=== PATIENT | male | born 1960 | race Caucasian/White ===

== ENCOUNTER 2020-04-24 12:11 | Inpatient (IN) ==
[2020-04-24] MEDS ORDERED: NS 0.9% 1000 ml BAG 1,000 ML IV ONE ×3 (12:25→13:46)
[2020-04-24] MEDS ORDERED: Lorazepam PYXIS KEY PRN ×2 (12:58→14:18)
[2020-04-24] MEDS ORDERED: LORazepam 2 mg VIAL 1 ml IV PUSH ONE ×2 (12:58→14:18)
[2020-04-24 13:21] LABS: Activated Partial Thrombo Time 24.9 seconds (26.0-38.0); Hematocrit 43 % (42-52); INR 1.44 (0.82-1.09); Mean Corpuscular HGB Conc 35 g/dL (31-36); Mean Corpuscular Hemoglobin 34 pg (27-31); Mean Corpuscular Volume 97 fL (80-94); Red Blood Count 4.36 10^6 /uL (4.18-5.48); Red Cell Distribution Width 13 % (10-15); White Blood Count 6.1 10^3/uL (3.5-10.8)
[2020-04-24 13:33] LABS: ALT 63 U/L (7-52); AST 53 U/L (13-39); Albumin 3.9 g/dL (3.2-5.2); Albumin/Globulin Ratio 1.2 (1-3); Alkaline Phosphatase 65 U/L (34-104); Anion Gap 11 mmol/L (2-11); BUN/Creatinine Ratio 15.7 (8-20); Blood Urea Nitrogen 14 mg/dL (6-24); CO2 Carbon Dioxide 27 mmol/L (22-32); Calcium 8.8 mg/dL (8.6-10.3); Chloride 94 mmol/L (101-111); Creatine Kinase 186 U/L (10-223); EGFR African American 105.1 (>60); EGFR Non-African American 86.9 (>60); Globulin 3.3 g/dL (2-4); Glucose 123 mg/dL (70-100); Magnesium 1.1 mg/dL (1.9-2.7); Potassium 3.3 mmol/L (3.5-5.0); Sodium 132 mmol/L (135-145); Total Protein 7.2 g/dL (6.4-8.9)
[2020-04-24 13:34] LABS: Troponin I 0.03 ng/mL (<0.03)
[2020-04-24 13:35] LABS: Alcohol, S < 10 mg/dL (<10)
[2020-04-24] MEDS ORDERED: Piperacillin/Tazobac ADVAN(*) 3.375 GM in NS 0.9% 100 ml BAG 100 ML IVPB ONE (13:37)
[2020-04-24] MEDS ORDERED: Magnesium Sulf 4 GM/100 ML IV 4,000 MG/100 ML BAG IVPB ONE ×2 (13:40)
[2020-04-24] MEDS ORDERED: Potassium Chlor 20 meq TAB.ER PO ONE (13:41)
[2020-04-24] MEDS ORDERED: Iohexol 300 (CONTRAST) 10 ML SDV IV ONE (13:43)
[2020-04-24 13:46] LABS: ABS Lymphocytes 0.2 10^3/ul (1.0-4.8); ABS Monocytes 0.2 10^3/ul (0-0.8); Lymphocyte % 2.8 %; Mean Platelet Volume 9.4 fL (7.4-10.4); Nucleated Red Blood Cells % 0.2; Platelet Count 66 10^3/uL (150-450)
[2020-04-24 13:50] LABS: TSH (Thyroid Stimulating Horm) 0.63 mcIU/mL (0.34-5.60)
[2020-04-24] MEDS: KCL 20 MEQ/100 ML IVPREMIX 20 MEQ/100 ML BAG IV SCH ×2 (13:59→17:21)
[2020-04-24] MEDS ORDERED: Thiamine 100 MG/ML 2 ml VIAL (200 mg) IM ONE (14:06)
[2020-04-24] MEDS ORDERED: Ondansetron 4 mg VIAL 2 MG/ML 2 ml VIAL IV PRN (15:46)
[2020-04-24] MEDS ORDERED: NS 0.9% 1000 ml BAG 1,000 ML IV SCH (16:00)
[2020-04-24 16:10] LABS: Urine Appearance Clear; Urine Bilirubin Negative (Negative); Urine Blood 1+ (Negative); Urine Color Yellow; Urine Glucose Negative (Negative); Urine Ketones Negative (Negative); Urine Nitrite Negative (Negative); Urine Protein Negative (Negative); Urine Urobilinogen Positive (Negative)
[2020-04-24 16:14] LABS: Urine Bacteria 1+ (Absent); Urine Red Blood Cell Trace(0-2/hpf) (Absent); Urine White Blood Cell 3+(>20/hpf) (Absent)
[2020-04-24 16:27] LABS: Troponin I 0.06 ng/mL (<0.03)
[2020-04-24 16:30] LABS: Urine Benzodiazepine Screen None Detected (None Detect); Urine Opiates Screen None Detected (None Detect)
[2020-04-24 16:36] LABS: Urine Specific Gravity > 1.030 (1.010-1.030)
[2020-04-24 16:53] LABS: Folate 13.88 ng/mL (>3.99)
[2020-04-24 17:02] LABS: ALT 51 U/L (7-52); AST 45 U/L (13-39); Albumin/Globulin Ratio 1.2 (1-3); Alkaline Phosphatase 66 U/L (34-104); BUN/Creatinine Ratio 13.8 (8-20); Blood Urea Nitrogen 13 mg/dL (6-24); CO2 Carbon Dioxide 24 mmol/L (22-32); Calcium 7.5 mg/dL (8.6-10.3); Chloride 103 mmol/L (101-111); EGFR African American 98.7 (>60); EGFR Non-African American 81.6 (>60); Globulin 2.6 g/dL (2-4); Glucose 129 mg/dL (70-100); Sodium 128 mmol/L (135-145); Total Protein 5.6 g/dL (6.4-8.9)
[2020-04-24] MEDS: Enoxaparin 40 MG/0.4 ML SYR(*) SUBCUT SCH (17:21)
[2020-04-24] MEDS: cefTRIAXone 1 gm/50 mL NS BAG 1 GM/50 ML BAG IVPB SCH (18:15)
[2020-04-24 19:02] LABS: Anion Gap 9 mmol/L (2-11); BUN/Creatinine Ratio 14.7 (8-20); Blood Urea Nitrogen 14 mg/dL (6-24); CO2 Carbon Dioxide 23 mmol/L (22-32); Calcium 8.1 mg/dL (8.6-10.3); Chloride 101 mmol/L (101-111); EGFR African American 97.5 (>60); EGFR Non-African American 80.6 (>60); Glucose 160 mg/dL (70-100); Magnesium 2.3 mg/dL (1.9-2.7); Sodium 133 mmol/L (135-145)
[2020-04-24 19:07] LABS: Troponin I 0.06 ng/mL (<0.03)
[2020-04-24 22:40] LABS: Troponin I 0.04 ng/mL (<0.03)
[2020-04-25] MEDS: LORazepam 1 mg TAB (*) PO SCH ×2 (04:04→06:15)
[2020-04-25] MEDS ORDERED: Lorazepam PYXIS KEY PRN ×3 (04:37→13:21)
[2020-04-25] MEDS ORDERED: LORazepam 2 mg VIAL 1 ml IV PUSH ONE ×2 (04:37→07:46)
[2020-04-25] MEDS ORDERED: LORazepam 2 mg VIAL 1 ml ONE (04:42)
[2020-04-25 05:27] LABS: ABS Lymphocytes 0.2 10^3/ul (1.0-4.8); ABS Monocytes 0.3 10^3/ul (0-0.8); Eosinophil % 0.3 %; Hematocrit 42 % (42-52); Hemoglobin 14.3 g/dL (14.0-18.0); Lymphocyte % 3.6 %; Mean Corpuscular HGB Conc 34 g/dL (31-36); Mean Corpuscular Hemoglobin 34 pg (27-31); Mean Corpuscular Volume 101 fL (80-94); Mean Platelet Volume 9.1 fL (7.4-10.4); Platelet Count 52 10^3/uL (150-450); Red Blood Count 4.18 10^6 /uL (4.18-5.48); Red Cell Distribution Width 14 % (10-15); White Blood Count 6.8 10^3/uL (3.5-10.8)
[2020-04-25] MEDS: Multivitamins/Minerals TAB PO SCH (07:39)
[2020-04-25] MEDS ORDERED: NS 0.9% 1000 ml BAG 1,000 ML IV ONE (08:46)
[2020-04-25] MEDS: Dexmedetomidine 1,000 MCG in NS 0.9% 250 ml 240 ML IV SCH (09:44)
[2020-04-25] MEDS ORDERED: Perflutren Lipid Microsphere 3 ML VIAL ONE (10:36)
[2020-04-25] MEDS ORDERED: Norepinephrine 16MCG/ML IVPRE 4,000 MCG/250 ML BAG IV ONE (11:20)
[2020-04-25] MEDS ORDERED: Norepinephrine 16MCG/ML IVPRE 4,000 MCG/250 ML BAG IV SCH (12:00)
[2020-04-25 13:50] LABS: BUN/Creatinine Ratio 21.6 (8-20); Calcium 8.1 mg/dL (8.6-10.3); EGFR African American 106.5 (>60); Potassium 3.8 mmol/L (3.5-5.0)
[2020-04-25] MEDS: cefTRIAXone 1 gm/50 mL NS BAG 1 GM/50 ML BAG IVPB SCH (18:07)
[2020-04-25] MEDS: Enoxaparin 40 MG/0.4 ML SYR(*) SUBCUT SCH (18:20)
[2020-04-25] MEDS: NS 0.9% 1000 ml BAG 1,000 ML IV SCH (19:50)
[2020-04-25] MEDS: LORazepam 2 mg VIAL 1 ml IV PUSH PRN (20:26)
[2020-04-26] MEDS: NS 0.9% 1000 ml BAG 1,000 ML IV SCH (03:00)
[2020-04-26] MEDS: LORazepam 2 mg VIAL 1 ml IV PUSH PRN ×2 (03:25)
[2020-04-26] MEDS: Dexmedetomidine 1,000 MCG in NS 0.9% 250 ml 240 ML IV SCH (03:25)
[2020-04-26 05:19] LABS: Calcium 7.3 mg/dL (8.6-10.3); Chloride 108 mmol/L (101-111); Sodium 133 mmol/L (135-145)
[2020-04-26 05:21] LABS: Anion Gap 12 mmol/L (2-11); CO2 Carbon Dioxide 13 mmol/L (22-32)
[2020-04-26 05:24] LABS: BUN/Creatinine Ratio 27.4 (8-20); Blood Urea Nitrogen 31 mg/dL (6-24); EGFR African American 79.8 (>60); Glucose 158 mg/dL (70-100); Phosphorus 3.3 mg/dL (2.5-5.0)
[2020-04-26 06:24] LABS: Hematocrit 40 % (42-52); Hemoglobin 13.5 g/dL (14.0-18.0); Mean Corpuscular HGB Conc 34 g/dL (31-36); Mean Corpuscular Hemoglobin 33 pg (27-31); Mean Corpuscular Volume 99 fL (80-94); Mean Platelet Volume 10.3 fL (7.4-10.4); Platelet Count 67 10^3/uL (150-450); Red Blood Count 4.02 10^6 /uL (4.18-5.48); Red Cell Distribution Width 14 % (10-15); White Blood Count 11.7 10^3/uL (3.5-10.8)
[2020-04-26 06:37] LABS: Magnesium 2.4 mg/dL (1.9-2.7); Potassium Redraw 3.8 mmol/L (3.5-5.0)
[2020-04-26] MEDS ORDERED: Sodium Bicarb 8.4% Vial 50 ML 100 MEQ in D5W 1000 ml BAG 1,000 ML IV SCH (07:00)
[2020-04-26 07:55] LABS: BUN/Creatinine Ratio 27.5 (8-20); Calcium 7.4 mg/dL (8.6-10.3); EGFR African American 83.2 (>60); EGFR Non-African American 68.8 (>60); Potassium 3.8 mmol/L (3.5-5.0)
[2020-04-26] MEDS ORDERED: Sodium Bicarb 8.4% Vial 50 ML 150 MEQ in D5W 1000 ml BAG 850 ML IV SCH (08:00)
[2020-04-26 08:44] LABS: ABS Lymphocytes 0.6 10^3/ul (1.0-4.8); Eosinophil % 0.1 %; Nucleated Red Blood Cells % 0.1
[2020-04-26] MEDS ORDERED: Calcium Gluconate 2 GM in NS 0.9% 100 ml BAG 100 ML IVPB ONE (08:51)
[2020-04-26] MEDS: Multivitamins/Minerals TAB PO SCH (09:00)
[2020-04-26] MEDS ORDERED: Norepinephrine 16MCG/ML IVPRE 4,000 MCG/250 ML BAG IV SCH (11:42)
[2020-04-26 12:38] LABS: BUN/Creatinine Ratio 30.5 (8-20); C Reactive Protein 143.38 mg/L (<8.01); Calcium 7.8 mg/dL (8.6-10.3); EGFR African American 97.5 (>60); EGFR Non-African American 80.6 (>60); Magnesium 2.5 mg/dL (1.9-2.7); Potassium 3.5 mmol/L (3.5-5.0)
[2020-04-26] MEDS ORDERED: NS 0.9% 1000 ml BAG 1,000 ML IV SCH ×2 (14:00→14:02)
[2020-04-26] MEDS ORDERED: Furosemide 20 mg/2 ml IV VIAL IV ONE (14:17)
[2020-04-26] MEDS: Enoxaparin 40 MG/0.4 ML SYR(*) SUBCUT SCH (18:09)
[2020-04-26] MEDS: cefTRIAXone 1 gm/50 mL NS BAG 1 GM/50 ML BAG IVPB SCH (18:09)
[2020-04-27 04:20] LABS: ABS Lymphocytes 0.6 10^3/ul (1.0-4.8); Eosinophil % 0.5 %; Hematocrit 37 % (42-52); Lymphocyte % 6.4 %; Mean Corpuscular HGB Conc 35 g/dL (31-36); Mean Corpuscular Hemoglobin 34 pg (27-31); Mean Corpuscular Volume 98 fL (80-94); Mean Platelet Volume 10.2 fL (7.4-10.4); Platelet Count 66 10^3/uL (150-450); Red Blood Count 3.82 10^6 /uL (4.18-5.48); Red Cell Distribution Width 14 % (10-15); White Blood Count 9.9 10^3/uL (3.5-10.8)
[2020-04-27 04:32] LABS: Albumin 2.9 g/dL (3.2-5.2); BUN/Creatinine Ratio 27.8 (8-20); EGFR African American 103.8 (>60); EGFR Non-African American 85.8 (>60); Globulin 2.9 g/dL (2-4); Potassium 3.5 mmol/L (3.5-5.0); Total Bilirubin 1.3 mg/dL (0.2-1.0); Total Protein 5.8 g/dL (6.4-8.9)
[2020-04-27] MEDS ORDERED: Furosemide 40 mg/4 ml IV VIAL IV ONE (07:49)
[2020-04-27] MEDS ORDERED: Potassium Chlor 10 meq TAB PO ONE (07:53)
[2020-04-27] MEDS: Multivitamins/Minerals TAB PO SCH (08:33)
[2020-04-27] MEDS: Enoxaparin 40 MG/0.4 ML SYR(*) SUBCUT SCH (17:01)
[2020-04-27] MEDS: cefTRIAXone 1 gm/50 mL NS BAG 1 GM/50 ML BAG IVPB SCH (17:18)
[2020-04-28] MEDS ORDERED: Furosemide 40 mg/4 ml IV VIAL IV ONE (09:17)
[2020-04-28 09:36] LABS: Albumin 2.9 g/dL (3.2-5.2); Calcium 8.3 mg/dL (8.6-10.3); EGFR African American 115.6 (>60); EGFR Non-African American 95.5 (>60); Globulin 2.9 g/dL (2-4); Magnesium 1.7 mg/dL (1.9-2.7); Total Bilirubin 1.3 mg/dL (0.2-1.0); Total Protein 5.8 g/dL (6.4-8.9)
[2020-04-28] MEDS: Multivitamins/Minerals TAB PO SCH (09:39)
[2020-04-28] MEDS: Enoxaparin 40 MG/0.4 ML SYR(*) SUBCUT SCH (16:23)
[2020-04-28] MEDS: cefTRIAXone 1 gm/50 mL NS BAG 1 GM/50 ML BAG IVPB SCH (16:24)
[2020-04-29 12:18] VITALS: BP 149/89
[2020-04-29] MEDS: Multivitamins/Minerals TAB PO SCH (12:47)
== END 2020-04-29 15:50 | disposition home or self-care (01) | DRG 720 ==
LOC: MED 12:11 → ED 12:11 → MEDTELE 16:41 → ICU 04-25 08:37 → MEDTELE 04-27 12:26
PROVIDERS: ADMIT Internal Medicine; ATTEND Hospitalist